=== PATIENT | female | born 1955 | race Caucasian/White ===

== ENCOUNTER → 2016-04-10 | Outpatient (CLI) | payer BC ==
[~2016-04-10] MED LIST: E-Z-GAS II EFFERVESCENT PACKET (SODIUM BICARB./CITRIC ACID/SIMETHICONE) As Ordered ONE; E-Z-HD 98% w/w 340GM SUSP BTL As Ordered ONE; E-Z-PAQUE 96% w/w SUSP 176GM BTL As Ordered ONE
--- NOTE | 2016-04-10 16:34 | REP ---
DOUBLE CONTRAST UPPER GI SERIES WITH SMALL-BOWEL FOLLOW-THROUGH AND KUB: 04/10/2016: Comparison: 07/24/2010 upper GI, CT abdomen 09/30/2014. Clinical history. Upper abdominal pain radiating around the abdomen. Heartburn. Findings: Guidance Director film shows mild levorotatory curve centered at L1. There are degenerative changes in the spine. Gas pattern is nonspecific with stool from cecum to rectosigmoid inclusive but not abnormally distending the bowel. No dilated small bowel loops or abnormal calcifications. No visible mass. AP and lateral cine-esophagram images show normal oral pharyngeal transfer and elevation of the cricopharyngeus muscle. There is a posterior impression on the cervical esophagus from anterior osteophyte lower cervical spine but no persistent stricture or mucosal abnormality. No laryngeal penetration or aspiration. In the thoracic esophagus. There was only minimal dysmotility without persistent mucosal abnormality, ulceration, mass or extrinsic mass effect. No hiatal hernia. I do not see distal esophageal stricture. There is one small episode of reflux into the lower esophageal segment. The stomach shows normal distensibility and rugal fold thickness. I do not see ulcer crater, mass, polyp or other persistent filling defect. No barium collection or aphthous ulceration nor any deep ulcerations evident radiographically. I see no extrinsic mass effect, duodenum shows normal distensibility and fold thickness. There is no ulceration duodenitis mass or extrinsic mass effect. Impression: 1. No duodenitis, gastritis, duodenal or gastric ulcer, mass or extrinsic mass effect. 2. No hiatal hernia, but one episode of a small amount of reflux lower esophageal segment. 3. Mild esophageal dysmotility without stricture, persistent mucosal abnormality, ulceration, or mass. SMALL-BOWEL FOLLOW-THROUGH: A further barium meal was administered with overhead images at 35, 65, 90 and 215 minutes. Transit time to the cecum just over 3 hours. There is a normal feathery mucosal pattern of the jejunum without full-thickness abnormality, loop separation, angulated or strictured loops. A more featureless mucosal pattern of the ileum is seen which is a normal finding. Terminal ileum was seen on ballottement and normal peristalsis is seen through it. There was no tenderness on this terminal ileum. I do not see strictured loops, loop separation or angulated loops anywhere in the small bowel loops. The patient placed the balloon palpation device over the area of her greatest discomfort which is in the left upper quadrant and is superimposed over some proximal jejunal loops and left colon, but no discrete abnormality is seen in this area. Impression: 1. Small bowel follow-through without persistent mucosal lesion, stricture or mass. There is no dilated loop, ulceration, nodule or any other abnormal finding on ballottement or overhead images. Transit time to the cecum just over 3 hours, in the normal range. Fluoroscopy time 2 minutes 10 seconds. Signed by David Dougherty MD 04/10/2016 04:51 P
== END ==
LOC: M RAD 08:41
PROVIDERS: ATTEND Surgery
DX: R10.9 Unspecified abdominal pain (principal)

== ENCOUNTER → 2016-08-07 | Outpatient (CLI) | payer BC ==
--- NOTE | 2016-08-07 23:05 | REP ---
Clinical: Cough. Technique: PA and lateral. Comparison: 01/29/2015. Findings: Chronic interstitial changes suggesting COPD. No acute consolidation, effusion, or pneumothorax. Mediastinum and cardiac silhouette normal. Skeletal structures demonstrate age-related osteopenia and degenerative change. Impression: Chronic interstitial changes suggesting COPD. Signed by Yakov Zhou MD 08/07/2016 10:56 P
== END ==
LOC: M ADAMS 13:34
PROVIDERS: ATTEND Family Medicine
DX: R91.8 Other nonspecific abnormal finding of lung field (principal)

== ENCOUNTER → 2017-02-12 | Outpatient (CLI) | payer BC ==
--- NOTE | 2017-02-14 09:29 | DEXA ---
AP SPINE L1 - L4 1.187 -0.1 1.3 LT FEMUR TOTAL 0.788 -1.7 -0.7 RT FEMUR TOTAL 0.821 -1.5 -0.5 TOTAL BODY TOTAL OTHER COMMENTS: Normal bone densitometry of the spine. There is low bone density of the left hip. There is low bone density of the right hip. There is degenerative change in the spine which may artificially elevate the BMD. The increased density of the spine does not represent a significant change since 02/08/2015. The decreased density of the left hip does represent a significant change since 02/08/2015. The decreased density of the right hip does represent a significant change since 02/08/2015. The density of the spine is decreased 5.4% since the initial exam on 05/09/2005. The spine density has increased 0.3% since the most recent exam on 02/08/2015. The density of the left hip has decreased 9.7% since the initial exam on 2005. The density of the left hip has decreased 2.6% since the most recent exam on 04/2014. The density of the right hip has decreased 11.1% since the initial exam on 05/09. The density of the right hip has decreased 4.4% since the most recent exam on . FOLLOW-UP: Recommendation for the next bone density exam: 2 years. MEGHANA
== END ==
LOC: M WHC 12:57
PROVIDERS: ATTEND Nurse Practitioner Women's Health
DX: M85.89 Other specified disorders of bone density and structure, multiple sites (principal); Z78.0 Asymptomatic menopausal state

== ENCOUNTER → 2017-03-19 | Outpatient (REF) | payer BC ==
[2017-03-19 20:50] LABS: BASO # 0.1 10^3/uL (0.0-0.2); BASO % 1.5 % (0.0-1.0); EOS # 0.1 10^3/uL (0.0-0.50); EOS % 2.3 % (0.0-3.0); HEMOGLOBIN 13.4 g/dl (12.0-16.0); IMMATURE GRANULOCYTE % 0.2 % (0-0); LYMPH % 32.9 % (24.0-44.0); MEAN CORPUSCULAR HEMOGLOBIN 32.7 pg (27.0-33.0); MEAN CORPUSCULAR HGB CONC 33.5 g/dl (32.0-36.5); MEAN CORPUSCULAR VOLUME 97.6 fl (80.0-96.0); MONO # 0.5 10^3/uL (0.0-0.8); MONO % 8.8 % (0.0-5.0); NEUTROPHILS # 3.4 10^3/uL (1.8-7.7); NEUTROPHILS % 54.3 % (36.0-66.0); PLATELET COUNT, AUTOMATED 245 10^3/uL (150-450); RED CELL DISTRIBUTION WIDTH 13.2 % (11.5-14.5); WHITE BLOOD COUNT 6.2 10^3/uL (4.0-10.0)
[2017-03-19 21:17] LABS: TOTAL 25(OH) VITAMIN D 29.8 NG/ML (30.0-100.0)
[2017-03-19 21:18] LABS: FOLATE 10.8 NG/ML
[2017-03-19 21:21] LABS: ALBUMIN 4.1 GM/DL (3.2-5.2); ALBUMIN/GLOBULIN RATIO 1.41 (1.00-1.93); ALKALINE PHOSPHATASE 77 U/L (45-117); ALT/SGPT 20 U/L (12-78); ANION GAP 7 MEQ/L (8-16); AST/SGOT 21 U/L (7-37); BILIRUBIN,TOTAL 0.3 MG/DL (0.2-1.0); BLOOD UREA NITROGEN 12 MG/DL (7-18); CALCIUM LEVEL 8.8 MG/DL (8.8-10.2); CARBON DIOXIDE LEVEL 28 MEQ/L (21-32); CHLORIDE LEVEL 104 MEQ/L (98-107); CREATININE FOR GFR 0.88 MG/DL (0.55-1.02); GLOMERULAR FILTRATION RATE > 60.0 (>45); GLUCOSE, FASTING 87 MG/DL (80-110); MAGNESIUM LEVEL 2.3 MG/DL (1.8-2.4); POTASSIUM SERUM 3.9 MEQ/L (3.5-5.1); RHEUMATOID FACTOR QUANT < 10.0 IU/ML (0-15.0); SODIUM LEVEL 139 MEQ/L (136-145)
[2017-03-19 22:50] LABS: ERYTHROCYTE SEDIMENTATION RATE 11 mm/hr (0-30)
[2017-03-20 11:36] LABS: VITAMIN B12 LEVEL 960 PG/ML
[2017-03-22 00:09] LABS: ANA (HEP2) Negative (.); Lyme Disease IgG/IgM Antibodie <0.91 ISR (0.00-0.90); Lyme Disease IgM Ab Quantitati <0.80 index (0.00-0.79)
== END ==
LOC: M SFHCADAM 16:39
DX: M13.0 Polyarthritis, unspecified (principal); E55.9 Vitamin D deficiency, unspecified; E53.8 Deficiency of other specified B group vitamins; M79.1 Myalgia; K21.9 Gastro-esophageal reflux disease without esophagitis
CPT/HCPCS: 82746

== ENCOUNTER → 2017-04-23 | Outpatient (CLI) | payer BC | LOC: M RAD 14:50 | DX: J98.4 Other disorders of lung (principal); J43.1 Panlobular emphysema; Z87.891 Personal history of nicotine dependence | CPT/HCPCS: G0297 ==

== ENCOUNTER → 2017-07-11 | Outpatient (REF) | payer BC ==
[2017-07-11 14:13] LABS: C REACTIVE PROTEIN QUANTITATIV < 0.30 MG/DL (0.00-0.30)
[2017-07-11 14:13] LABS: CPK CREATINE PHOSPHOKINASE 109 U/L (26-192)
[2017-07-16 00:07] LABS: FREE KAPPA LIGHT CHAINS SERUM 21.2 mg/L (3.3-19.4); FREE KAPPA LIGHT CHAINS URINE 1.89 mg/L (1.35-24.19); FREE LAMBDA LIGHT CHAINS SERUM 15.9 mg/L (5.7-26.3); FREE LAMBDA LIGHT CHAINS URINE 0.09 mg/L (0.24-6.66); IgG P18 AB Absent (.); IgG P23 AB Absent (.); IgG P28 AB Absent (.); IgG P30 AB Absent (.); IgG P39 AB Absent (.); IgG P41 AB Absent (.); IgG P45 AB Absent (.); IgG P58 AB Absent (.); IgG P66 AB Absent (.); IgG P93 AB Absent (.); IgM P23 AB Absent (.); IgM P39 AB Absent (.); IgM P41 AB Absent (.); KAPPA/LAMBDA RATIO SERUM 1.33 (0.26-1.65); LYME IgG WB INTERPRETATION Negative (.); LYME IgM WB INTERPRETATION Negative (.)
== END ==
LOC: M SFHCADAM 11:14
DX: M79.1 Myalgia (principal); M25.50 Pain in unspecified joint; D75.89 Other specified diseases of blood and blood-forming organs
CPT/HCPCS: 82550

== ENCOUNTER → 2018-05-13 | Outpatient (REF) | payer BC ==
[2018-05-13 20:25] LABS: HEMATOCRIT 40.9 % (36.0-47.0); HEMOGLOBIN 13.8 g/dl (12.0-15.5); MEAN CORPUSCULAR HEMOGLOBIN 32.5 pg (27.0-33.0); MEAN CORPUSCULAR HGB CONC 33.7 g/dl (32.0-36.5); MEAN CORPUSCULAR VOLUME 96.5 fl (80.0-96.0); PLATELET COUNT, AUTOMATED 243 10^3/uL (150-450); RED BLOOD COUNT 4.24 10^6/uL (4.00-5.40); WHITE BLOOD COUNT 5.2 10^3/uL (4.0-10.0)
[2018-05-13 20:51] LABS: ALT/SGPT 17 U/L (12-78); BILIRUBIN,TOTAL 0.5 MG/DL (0.2-1.0); BLOOD UREA NITROGEN 11 MG/DL (7-18); CALCIUM LEVEL 8.7 MG/DL (8.8-10.2); CARBON DIOXIDE LEVEL 26 MEQ/L (21-32); CHLORIDE LEVEL 105 MEQ/L (98-107); CREATININE FOR GFR 0.93 MG/DL (0.55-1.30); FOLATE 14.2 NG/ML; GLOMERULAR FILTRATION RATE > 60.0 (>45); GLUCOSE, FASTING 73 MG/DL (70-100); POTASSIUM SERUM 3.9 MEQ/L (3.5-5.1); SODIUM LEVEL 139 MEQ/L (136-145); TOTAL 25(OH) VITAMIN D 32.8 NG/ML (30.0-100.0); TOTAL PROTEIN 6.9 GM/DL (6.4-8.2); VITAMIN B12 LEVEL 513 PG/ML
== END ==
LOC: M SFHCADAM 16:15
PROVIDERS: ATTEND Physician Assistant
DX: E55.9 Vitamin D deficiency, unspecified (principal); E53.8 Deficiency of other specified B group vitamins; R51 Headache; R20.2 Paresthesia of skin; Z72.0 Tobacco use

== ENCOUNTER → 2018-06-16 | Outpatient (CLI) | payer BC ==
--- NOTE | 2018-06-16 16:37 | REPMRS ---
Patient History The patient states she had a clinical breast exam in 06/2018. Patient is postmenopausal and is nulliparous. No known family history of cancer. Benign excisional biopsy of the left breast. No Hormone Replacement Therapy Digital Woman Screen Mammo: June 16, 2018 - Exam #: [id number] Bilateral CC and MLO view(s) were taken. Technologist: Anne-Marie Luciano, Technologist Prior study comparison: January 10, 2017, digital woman screen mammo performed at [facility]. January 05, 2016, digital woman screen mammo performed at [facility]. January 04, 2015, digital woman screen mammo performed at [facility]. FINDINGS: The breast tissue is extremely dense which could obscure a lesion on mammography. There is an extremely dense symmetrical pattern of residual fibroglandular tissue. There has been no change in the appearance of the mammogram from the previous studies. There is no interval development of dominant mass, archetectural distortion, or microcalcific cluster suggestive of malignancy. 3-D tomosynthesis shows no additional findings. Assessment: BI-RADS/ACR category 1 mammogram. Negative Mammogram. Recommendation Routine screening mammogram of both breasts in 1 year (for women over age 40). This patient's Lifetime Breast Cancer RIsk is estimated at 8.1 %. This mammogram was interpreted with the aid of an FDA-approved computer-aided dectection system. Electronically Signed By: Bimal Catherine MD 06/16/18 0804
== END ==
LOC: M WHC 14:14
PROVIDERS: ATTEND Nurse Practitioner Women's Health
DX: Z12.31 Encounter for screening mammogram for malignant neoplasm of breast (principal); Z78.0 Asymptomatic menopausal state

== ENCOUNTER → 2019-04-01 | Outpatient (CLI) | payer BC ==
--- NOTE | 2019-04-02 17:18 | REP ---
Upper GI Air Contrast with SBFT The procedure was performed by SARTHAK Lopez, under the the direct supervision of Dr. Lee. The images were reviewed with Dr. Lee. The slipman film shows no organomegaly or pathological masses. The intestinal gas pattern appears normal. Liquid barium and gas producing crystals were given in the erect position as well as liquid barium in the prone position in order to perform a double contrast upper GI examination. The oral and pharyngeal stages of deglutition were unremarkable. Esophageal transport is efficient and there is no esophagitis, stricture, or mucosal ring noted. There is no hiatal hernia. Gastroesophageal reflux was visualized to the level of the caitlyn. The stomach caruso are normally outlined. The rugal folds are smooth and regular. There is no gastritis, neoplasm, or ulcer disease noted. The duodenal caruso are normally outlined. The mucosal folds are smooth and regular. There is no duodenitis, peptic ulcer disease, or neoplasm noted. The visualized portion of the proximal small bowel appears normal in course and caliber. The barium column was followed through the small bowel to the level of the terminal ileum. Small bowel transit time was approximately 160 minutes. During fluoroscopy gentle palpation shows all loops are freely mobile and pliable. There are no fixed or angulated loops. The small bowel mucosal pattern is normal in course and caliber. There is no transition to set suggest a partial small-bowel obstruction. Spot filming of the terminal ileum shows it to be unremarkable. Impression: 1. Gastroesophageal reflux to the level of the caitlyn. 1.1 minutes of fluoroscopy time was utilized for this procedure. Some fluoroscopic images are performed with last image hold technology. These images require no additional radiation. Reviewed by SARTHAK Black 04/02/2019 04:42 P Electronically Signed by Oliverio Lee MD 04/02/2019 05:09 P
== END ==
LOC: M RAD 10:03
PROVIDERS: ATTEND Surgery
DX: K21.9 Gastro-esophageal reflux disease without esophagitis (principal); R11.2 Nausea with vomiting, unspecified

== ENCOUNTER → 2019-06-25 | Outpatient (CLI) | payer BC ==
--- NOTE | 2019-06-25 17:29 | REP ---
LOW DOSE LUNG SCREENING CT: Low dose lung screening CT is performed without IV contrast. COMPARISON: Compared to prior studies of 05/29/2018 and 04/23/2017. In the right upper lobe there is a new 3 mm nodular density on image 48. No other new nodule is seen bilaterally. Fibrotic scarring is seen in the lung bases bilaterally. There is no consolidation. There is no pleural effusion. The heart is normal in size. No mediastinal contour abnormality is seen. There are atherosclerotic calcifications of the thoracic aorta without aneurysm. IMPRESSION: Lung-RADS category 2 benign. There is a new 3 mm nodule in the right upper lobe on image 48. No other new nodule. According to Edgar Society criteria, followup exam is recommended in one year. Electronically Signed by Oliverio Spence MD 06/28/2019 10:49 A
== END ==
LOC: M RAD 13:14
PROVIDERS: ATTEND Physician Assistant
DX: F17.218 Nicotine dependence, cigarettes, with other nicotine-induced disorders (principal); Z12.2 Encounter for screening for malignant neoplasm of respiratory organs

== ENCOUNTER → 2020-01-26 | Outpatient (REF) | payer BC ==
[2020-01-26 12:25] LABS: HEMATOCRIT 43.5 % (36.0-47.0); HEMOGLOBIN 14.6 g/dl (12.0-15.5); MEAN CORPUSCULAR HEMOGLOBIN 33.4 pg (27.0-33.0); MEAN CORPUSCULAR HGB CONC 33.6 g/dl (32.0-36.5); MEAN CORPUSCULAR VOLUME 99.5 fl (80.0-96.0); PLATELET COUNT, AUTOMATED 231 10^3/uL (150-450); RED BLOOD COUNT 4.37 10^6/uL (4.00-5.40); WHITE BLOOD COUNT 5.6 10^3/uL (4.0-10.0)
[2020-01-26 13:15] LABS: ALBUMIN 3.9 GM/DL (3.2-5.2); ALT/SGPT 14 U/L (12-78); BILIRUBIN,TOTAL 0.6 MG/DL (0.2-1.0); BLOOD UREA NITROGEN 12 MG/DL (7-18); CALCIUM LEVEL 9.3 MG/DL (8.8-10.2); CARBON DIOXIDE LEVEL 28 MEQ/L (21-32); CHLORIDE LEVEL 108 MEQ/L (98-107); CHOLESTEROL LEVEL 197 MG/DL (<200); CHOLESTEROL RISK RATIO 2.626 (<5); CREATININE FOR GFR 0.83 MG/DL (0.55-1.30); FOLATE 11.6 NG/ML; FREE T4 1.13 NG/DL (0.76-1.46); GLOMERULAR FILTRATION RATE > 60.0 (>45); GLUCOSE, FASTING 80 MG/DL (70-100); HDL CHOLESTEROL 75 MG/DL (>40); LDL CHOLESTEROL 105 MG/DL (<100); NON-HDL-C 122 MG/DL; POTASSIUM SERUM 4.4 MEQ/L (3.5-5.1); SODIUM LEVEL 141 MEQ/L (136-145); TOTAL 25(OH) VITAMIN D 23.2 NG/ML (30.0-100.0); TOTAL PROTEIN 6.8 GM/DL (6.4-8.2); TRIGLYCERIDES LEVEL 85 MG/DL (<150); VITAMIN B12 LEVEL 269 PG/ML
[2020-01-26 13:25] LABS: CREATININE, URINE 74.9 MG/DL; MALB URINE SIEMENS < 5.0 MG/L; MAU/CREAT RATIO 6.6 MCG/MG (0.0-30.0)
== END ==
LOC: M SFHCADAM 09:16
PROVIDERS: ATTEND Physician Assistant
DX: Z13.220 Encounter for screening for lipoid disorders (principal); E55.9 Vitamin D deficiency, unspecified; K21.9 Gastro-esophageal reflux disease without esophagitis; M85.80 Other specified disorders of bone density and structure, unspecified site; R10.12 Left upper quadrant pain; R63.4 Abnormal weight loss; I51.7 Cardiomegaly

== ENCOUNTER → 2020-02-23 | Outpatient (CLI) | payer MEDICARE, BC ==
--- NOTE | 2020-02-24 16:21 | ECHO ---
DATE OF PROCEDURE: 02/23/2020 Age: 64 Gender: Female Height: 67 inches Weight: 141 pounds Body surface area: 1.74 m2 PATIENT LOCATION: Outpatient. REFERRING PHYSICIAN: NISHANT Coronado INDICATION: Left ventricular hypertrophy/hypertension. MEASUREMENTS: 2D Measurements: RV 3.3 cm LV 4.0 cm Septum 0.9 cm Posterior wall 0.9 cm Aortic Root 2.8 cm LA 3.2 cm LVEF 65% Doppler Measurements: AV 1.3 m/s LVOT 0.74 m/s MV-E 78, A 66, E/A ratio 1.2 Early mitral deceleration time 222 msec E prime medial 6.3, A prime medial 9.4, E prime lateral 7.0 Average E/E prime ratio 11.7/PCWP 16.4 mmHg PV 0.85 m/s Pulmonary artery acceleration time 165 msec RVSP 25 mmHg IVC 1.7 cm COMMENTS: Normal sinus rhythm without intraventricular conduction disturbance. M-mode and two-dimensional echocardiography was performed with pulse, continuous wave, color flow, and tissue Doppler studies. Normal left ventricular size, wall thickness, and wall motion. Normal left atrial size and Doppler assessment of LV diastolic function and estimated mean left atrial pressure. Normal right heart chamber sizes and motion and estimated pulmonary arterial pressure. Normal IVC size and collapse against an elevated central venous pressure. Normal aortic dimensions. Mild aortic valvular sclerosis without stenosis and only very mild insufficiency. , Mild mitral annular thickening, but normal leaflet thickness and excursion without inflow tract obstruction and only trace mitral insufficiency. Normal appearing tricuspid valve with very mild insufficiency. No apparent intracardiac mass or pericardial effusion. MTDD
== END ==
LOC: M CARPUL 10:24
PROVIDERS: ATTEND Physician Assistant
DX: I51.7 Cardiomegaly (principal)

== ENCOUNTER → 2020-02-24 | Outpatient (CLI) | payer MEDICARE, BC ==
[~2020-02-24] MED LIST changes: +ALBU8.5H INH; -E-Z-GAS II EFFERVESCENT PACKET (SODIUM BICARB./CITRIC ACID/SIMETHICONE) As Ordered ONE; -E-Z-HD 98% w/w 340GM SUSP BTL As Ordered ONE; -E-Z-PAQUE 96% w/w SUSP 176GM BTL As Ordered ONE; +PANT40TA29 PO; +SPIR1AER INH; +VITA50005 PO
--- NOTE | 2020-02-24 15:20 | REPMRS ---
Patient History The patient states she had a clinical breast exam in February 2020. No known family history of cancer. Benign excisional biopsy of the left breast. No Hormone Replacement Therapy Digital Woman Screen Mammo: February 24, 2020 - Exam #: [id number] Bilateral CC and MLO view(s) were taken. Technologist: RT Teresa Prior study comparison: June 16, 2018, bilateral digital woman screen mammo performed at [facility]. January 10, 2017, digital woman screen mammo performed at [facility]. January 05, 2016, digital woman screen mammo performed at [facility]. FINDINGS: The breast tissue is extremely dense which could obscure a lesion on mammography. The Volpara volumetric breast density category is: D. There is an extremely dense symmetrical pattern of residual fibroglandular tissue. There has been no change in the appearance of the mammogram from the previous studies. There is no interval development of dominant mass, archetectural distortion, or grouped microcalcifications suggestive of malignancy. 3-D tomosynthesis shows no additional findings. Assessment: BI-RADS/ACR category 1 mammogram. Negative Mammogram. Recommendation Routine screening mammogram of both breasts in 1 year (for women over age 40). This patient's [facility] Lifetime Breast Cancer RIsk is estimated at 7.8 %. This mammogram was interpreted with the aid of an FDA-approved computer-aided dectection system. Electronically Signed By: Bimal Catherine MD 02/24/20 [id number]
--- NOTE | 2020-02-24 15:33 | DEXAMM ---
INDICATION: M85.80 OSTEOPENIA. COMPARISON: The most recent comparison study is from February 12, 2017. The most remote prior exam is from May 09, 2005.. TECHNIQUE: Bone density was measured using dual-energy x-ray absorptionmetry (DEXA). FINDINGS: AP SPINE L1-L4 BMD 1.216 g/cm2 Young Adult T-Score 0.2 Age Matched Z-Score 1.8. LT FEMUR, TOTAL BMD 0.770 g/cm2 Young Adult T-Score -1.9 Age Matched Z-Score -0.7. LT NECK BMD 0.671 g/cm2 Young Adult T-Score -2.6 Age Matched Z-Score -1.2. RT FEMUR, TOTAL BMD 0.839 g/cm2 Young Adult T-Score -1.3 Age Matched Z-Score -0.2. RT NECK BMD 0.739 g/cm2 Young Adult T-Score -2.1 Age Matched Z-Score -0.7. IMPRESSION: There is normal bone density of the spine. There is osteoporosis of the left hip. There is low bone density of the right hip. The density of the spine has decreased 1.4% since the initial exam on May 09 2005. The density of the spine increased 3.9% since most recent exam on February 12, 2017. The density of the left hip has decreased 11.8% since initial exam on May 09, 2005. The density of the left hip has decreased 2.3% since most recent exam on February 12, 2017. The density of the right hip has decreased 9.1% since the initial exam on May 09, 2005. The density of the right hip has increased 2.2% since the most recent exam on February 12, 2017. FOLLOW-UP: Recommendation for the next bone density exam: 2 years. <Electronically signed by Bimal Catherine > 02/24/20 [id number]
== END ==
LOC: M WHC 13:45
PROVIDERS: ATTEND Nurse Practitioner Women's Health
DX: Z01.419 Encounter for gynecological examination (general) (routine) without abnormal findings (principal); Z12.31 Encounter for screening mammogram for malignant neoplasm of breast; M85.80 Other specified disorders of bone density and structure, unspecified site; Z78.0 Asymptomatic menopausal state; Z86.018 Personal history of other benign neoplasm; M16.11 Unilateral primary osteoarthritis, right hip
CPT/HCPCS: 77063; 77067; 77080; 87624; G0101; G0123

== ENCOUNTER → 2020-02-24 | Outpatient (REF) | payer MEDICARE, BC | LOC: M SFHCWAGY 17:27 | PROVIDERS: ATTEND Nurse Practitioner Women's Health | DX: Z12.4 Encounter for screening for malignant neoplasm of cervix (principal) | CPT/HCPCS: 87624; G0101; G0123 ==

== ENCOUNTER → 2020-03-18 | Outpatient (CLI) | payer BC | LOC: M LABSMTC 09:55 | PROVIDERS: ATTEND Anesthesiology | DX: Z01.812 Encounter for preprocedural laboratory examination (principal); Z20.822 Contact with and (suspected) exposure to COVID-19 ==

== ENCOUNTER 2020-03-23 09:12 | Day surgery (SDC) | payer MEDICARE, BC ==
[~2020-03-23] VITALS: Ht 165.1 cm; Wt 62.6 kg
[~2020-03-23 09:12] MED LIST changes: +NS 1,000 ML IV ONE
--- OUTSIDE RECORDS SUMMARY | 2020-03-23 09:22 | CCD ---
Author Author [facility] Organization [facility] Address Unknown Phone Unavailable Care Team Providers Care Loan Review Analyst Name Role Phone Anna Langston Unavailable PROBLEMS Type Condition ICD9-CM Code [id number] Code Onset Dates Condition S tatus SNOMED Code Notes Problem Tobacco use disorder Z72.0 Active 41673372 Problem Hiatal hernia K44.9 Active 20781970 Problem Vitamin D deficiency E55.9 Active 96785320 Problem Osteopenia M85.80 Active 048542656 Problem Tinea corporis B35.4 Active 36934261 Problem Vitamin B12 deficiency E53.8 Active 410627894 Problem Tingling of face R20.2 Active 26907739 Problem GERD (gastroesophageal reflux disease) K21.9 A ctive 461133866 Problem LVH (left ventricular hypertrophy) I51.7 Activ e 25629422 Problem Osteoporosis M81.0 Active 80869103 Problem Tobacco use disorder F17.200 Active 732995243 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 Active 60583936 Problem Macrocytosis D75.89 Active 166436137 Problem Macrocytosis without anemia D75.89 Active 2343 44736 ALLERGIES Allergen (clinical drug ingredient) Drug/Non Drug Allergy do cumented on EMR Reaction Allergy Type Onset Date Status Penicillin (For Allergies Use Only) Hives Drug Allerg y Active ENCOUNTERS from 1955 to 2020-02-10 Encounter Location Date Provider Diagnosis [facility] [address] [place] [address] Feb, Sahil Langston IMMUNIZATIONS Vaccine Route Administration Date Status Pneumococcal Adult 0.5mL (Pneumovax 23) IM Intramuscular Nov Administered Influenza (6mo & up) Fluzone Unknown Jan 10, 2017 Oth ers Influenza (6mo & up) Fluzone Unknown Jan 04, 2016 Ref used Influenza (6mo & up) Fluzone IM Intramuscular Dec 01, 2013 Ad ministered Influenza (6mo & up) Fluzone IM Intramuscular Jan 23, 2011 Ad ministered SOCIAL HISTORY Tobacco Use: Social History Observation Description Date Details (start date - stop date) Current Smoker Sex Assigned At : Social History Observation Description Sex Assigned At Unknown Education: Question Answer Notes Level of Education: College Language: Question Answer Notes Languages spoken: Liberian Denominational: Question Answer Notes Denominational 21 Denominational Sexual Hx: Question Answer Notes Had sex in the last 12 months (vaginal, oral, or anal)? Yes LMP: age 48 Have you ever had an STD? No with Men only Use protection? No Alcohol Screening: Question Answer Notes Did you have a drink containing alcohol in the past year? Ye s Points 2 Interpretation Negative How often did you have six or more drinks on one occas ion in the past year? Never (0 points) How many drinks did you have on a typica l day when you were drinking in the past year? 1 or 2 (0 points) How often did you have a drink containing alcohol in t he past year? Two to four times a month (2 points) Tobacco Use: Question Answer Notes Are you a: current smoker Patient counseled on the dangers of tobacco use and urged to quit: 06/16/2018 How many cigarettes a day do you smoke? 11-20 Are you interested in quitting? Thinking about quitting pt h as chantix & will start in the future just not now Counseled the patient on smoking cessation, education provid ed 06/16/2018 REASON FOR REFERRAL No Information VITAL SIGNS No information MEDICATIONS Medication SIG (Take, Route, Frequency, Duration) Notes Start Da te End Date Status Chantix starter luis manuel 1 tab Oral for 14 days Not-Taking Valsartan 80 MG 1 tablet Orally Once a day for 30 day(s) 1 8 Jan, 2020 Active Vitamin B-12 1000 MCG 1 tablet Orally Once a day Not-Taking Omeprazole 40 MG 1 capsule Orally Daily Active Cortisporin-TC 3.3-3-10-0.5 MG/ML 5 drops into affecte d ear Otic Three times a day as needed for itching for 10 day(s) Jan, Active Drisdol 46348 UNIT 1 capsule Orally weekly for 30 day(s) 0 8 Aug, 2015 Not-Taking PROCEDURES No Information RESULTS No Results REASON FOR VISIT B12 low MEDICAL (GENERAL) HISTORY Type Description Date Medical History GERD Medical History Osteopenia DEXA 2012, Osteo porosis per DEXA 02/2015 - FRAX score 19.7/3.1% - unable to take oral bisphosphonates due to severe GERD/HH Medical History Abdominal pain, left upper q uadrant - chronic - followed by Dr. Cornelius (?splenic flexure syndrome) Medical History Hiatal hernia Medical History Vitamin D Deficiency - not t aking vitamin D due to GI complaints Medical History Tobacco Abuse Medical History Pooled Cohort Risk Score = 4.7% 02/2016 Medical History COPD/Emphysema - Follows [facility] Medical History 3mm nodule on lung cancer sc reening CT 07/2019 - F/U recommended in 1 year (managed by Pulmonary) Medical History GERD per UGI with SBFT 03/2019 Surgical History tonsillectomy Surgical History breast biopsy/LEFT 07/13 Surgical History colonoscopy 2005 & 09/25/2010 Surgical History endoscopy 2005 Surgical History EGD - HH 09/25/2010 Hospitalization History No know Hospitalization history Goals Section No Information Health Concerns No Information MEDICAL EQUIPMENT No Information MENTAL STATUS No Information FUNCTIONAL STATUS No Information ASSESSMENTS No Information PLAN OF TREATMENT Medication Medication Name Sig Start Date Stop Date Valsartan 80 MG 1 tablet Orally Once a day for 30 day(s) Jan, Cortisporin-TC 3.3-3-10-0.5 MG/ML 5 drops into affecte d ear Otic Three times a day as needed for itching for 10 day(s) Jan, Next Appt Details Provider Name:Yara Osorio, 2020-02-24 01:40:00 PM, [address] [place], [address], Provider Name:Anna Langston, 2020-02 04:15:00 PM, [address], [address], Insurance Providers Payer Name Payer Address Payer Phone Insured Name Patient Relati onship to Insured Coverage Start Date Coverage End Date BCBS MATT GUO PPO [phone] [facility] [address] [facility] [id number] MATILDA RIVERO self
--- OUTSIDE RECORDS SUMMARY | 2020-03-23 09:22 | CCD ---
Author Author [facility] Organization [facility] Address Unknown Phone Unavailable Care Team Providers Care Luggage Maker Name Role Phone Anna Langston Unavailable PROBLEMS Type Condition ICD9-CM Code [id number] Code Onset Dates Condition S tatus SNOMED Code Notes Problem Tobacco use disorder Z72.0 Active 40439147 Problem Hiatal hernia K44.9 Active 05769276 Problem Vitamin D deficiency E55.9 Active 59885018 Problem Osteopenia M85.80 Active 730411042 Problem Tinea corporis B35.4 Active 25325740 Problem Vitamin B12 deficiency E53.8 Active 705593969 Problem Tingling of face R20.2 Active 47156973 Problem GERD (gastroesophageal reflux disease) K21.9 A ctive 927238408 Problem LVH (left ventricular hypertrophy) I51.7 Activ e 05200194 Problem Osteoporosis M81.0 Active 65204894 Problem Tobacco use disorder F17.200 Active 833861128 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 Active 24802940 Problem Macrocytosis D75.89 Active 209696559 Problem Macrocytosis without anemia D75.89 Active 2343 42153 ALLERGIES Allergen (clinical drug ingredient) Drug/Non Drug Allergy do cumented on EMR Reaction Allergy Type Onset Date Status Penicillin (For Allergies Use Only) Hives Drug Allerg y Active ENCOUNTERS from 1955 to 2020-03-11 Encounter Location Date Provider Diagnosis [facility] [address] [place] [address] Feb, Reg kay Langston Vitamin D deficiency E55.9 ; LVH (left ventricular hypertrophy) I51.7 ; Vitamin B12 deficiency E53.8 and Tobacco use disorder F17.200 IMMUNIZATIONS Vaccine Route Administration Date Status Pneumococcal [...] College Language: Question Answer Notes Languages spoken: Egyptian Synagogue: Question Answer Notes Synagogue 21 [employer] Sexual Hx: Question Answer Notes Had sex [...] Notes Start Da te End Date Status Drisdol 44750 UNIT 1 capsule Orally weekly for 30 day(s) 0 8 Aug, 2015 Active Vitamin B-12 1000 MCG 1 tablet Orally Once a day Active Cortisporin-TC 3.3-3-10-0.5 MG/ML 5 drops into affecte d ear Otic Three times a day as needed for itching for 10 day(s) 18 Jan, 2020 Active Chantix starter luis manuel 1 tab Oral for 14 days Not-Taking Valsartan 80 MG 1 tablet Orally Once a day for 30 day(s) 1 8 Jan, 2020 Not-Taking Omeprazole 40 MG 1 capsule Orally Daily Active PROCEDURES No Information RESULTS No Results REASON FOR VISIT 4 week CALL CELL PHONE MEDICAL (GENERAL) HISTORY Type Description Date Medical [...] EGD - HH 09/25/2010 Hospitalization History No Hospitalization history informati on Goals Section No Information Health Concerns No Information MEDICAL EQUIPMENT No Information MENTAL STATUS No Information FUNCTIONAL STATUS No Information ASSESSMENTS Encounter Date Diagnosis Assessment Notes Treatment Notes Treatm ent Clinical Notes Feb, Vitamin D deficiency (ICD-10 - E55.9) Her Echo is pending - if she has LVH on the Echo, we will start lower dose of Valsartan and monitor BP and and tolerance. Feb, LVH (left ventricular hypertrophy) (ICD-10 - I51 .7) Feb, Vitamin B12 deficiency (ICD-10 - E53.8) Feb, Tobacco use disorder (ICD-10 - F17.200) PLAN OF TREATMENT Treatment Notes Assessment Notes Clinical Notes Vitamin D deficiency Her Echo is pending - if she has LVH on the Echo, we will start lower dose of Valsartan and monitor BP and and tolerance. Next Appt Details 1 Year Reason: Insurance Providers Payer Name Payer Address Payer Phone Insured Name Patient Relati onship to Insured Coverage Start Date Coverage End Date MEDICARE Part A and B [address] [facility] [id number] [phone] MATILDA RIVERO self BCBS MATT GUO PPO [phone] [place] [address] MATILDA RIVERO self
--- OUTSIDE RECORDS SUMMARY | 2020-03-23 09:22 | CCD ---
Author Author [facility] Organization [facility] Address Unknown Phone Unavailable Care Team Providers Care Transit Police Officer Name Role Phone Yara Osorio Unavailable PROBLEMS Type Condition ICD9-CM Code [id number] Code Onset Dates Condition S tatus SNOMED Code Notes Problem Tobacco use disorder Z72.0 Active 95499364 Problem Hiatal hernia K44.9 Active 94628136 Problem Vitamin D deficiency E55.9 Active 04549075 Problem Osteopenia M85.80 Active 127638741 Problem Tinea corporis B35.4 Active 74660802 Problem Vitamin B12 deficiency E53.8 Active 579890938 Problem Tingling of face R20.2 Active 81504623 Problem GERD (gastroesophageal reflux disease) K21.9 A ctive 766232996 Problem LVH (left ventricular hypertrophy) I51.7 Activ e 54026466 Problem Osteoporosis M81.0 Active 59586186 Problem Tobacco use disorder F17.200 Active 095659185 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 Active 47707620 Problem Macrocytosis D75.89 Active 432958667 Problem Macrocytosis without anemia D75.89 Active 2343 56500 ALLERGIES Allergen (clinical drug ingredient) Drug/Non Drug Allergy do cumented on EMR Reaction Allergy Type Onset Date Status Penicillin (For Allergies Use Only) Hives Drug Allerg y Active ENCOUNTERS from 1955 to 2020-02-26 Encounter Location Date Provider Diagnosis [facility] [address] [place] [id number] Feb, Yara Osorio Routine gynecologica l examination Z01.419 ; Osteopenia M85.80 and Screening for malignant neoplasm of cervix Z12.4 IMMUNIZATIONS Vaccine Route Administration Date Status Pneumococcal [...] College Language: Question Answer Notes Languages spoken: Luxembourgish Denominational: Question Answer Notes Denominational 21 Mormonism Sexual Hx: Question Answer Notes Had sex [...] REASON FOR REFERRAL No Information VITAL SIGNS Weight 141 lbs Feb, Weight-kg 63.96 kg Feb, Height 65.5 in Feb, BMI 23.1 kg/m2 Feb, Blood pressure systolic 108 mm Hg Feb, Blood pressure diastolic 66 mm Hg Feb, MEDICATIONS Medication SIG (Take, Route, Frequency, Duration) Notes Start Da te End Date Status Drisdol 10633 UNIT 1 capsule Orally weekly for 30 day(s) 0 8 Aug, 2015 Active Vitamin B-12 1000 MCG 1 tablet Orally Once a day Active Cortisporin-TC 3.3-3-10-0.5 MG/ML 5 drops into affecte d ear Otic Three times a day as needed for itching for 10 day(s) Jan, Active Chantix starter luis manuel 1 tab Oral for 14 days Not-Taking Valsartan 80 MG 1 tablet Orally Once a day for 30 day(s) 1 8 Jan, 2020 Not-Taking Omeprazole 40 MG 1 capsule Orally Daily Active PROCEDURES No Information RESULTS Component Value Reference Range DEXA Hip and Spine Reviewed date:02/25/2020 16:49:19 Interpretation: Performing Lab[facility], ,[email or web address] [id number] [facility] Wade Screening Bilateral (Ultrasoun d if Indicated) (3D Mammo) Reviewed date:02/25/2020 11:34:54 Interpretation: Performing Lab:[facility], ,[email or web address] [id number] REASON FOR VISIT ANNUAL/MAMMO/BMD MEDICAL (GENERAL) HISTORY Type Description Date Medical [...] Treatment Notes Treatm ent Clinical Notes Feb, Routine gynecological examination (ICD-10 - Z01. 419) Feb, Osteopenia (ICD-10 - M85.80) Feb, Screening for malignant neoplasm of cervix (ICD- 10 - Z12.4) PLAN OF TREATMENT Treatment Notes Test Name Order Date PAP REQUEST FOR SERVICE 2020-02-26 Next Appt Details 1 Year Reason:mammo or sooner prn Follow Up:1 Yearmammo or sooner prn Insurance Providers Payer Name Payer Address Payer Phone Insured Name Patient Relati onship to Insured Coverage Start Date Coverage End Date BCBS [place] PPO [phone] [place] [address] MATILDA RIVERO self MEDICARE Part A and [address] [place] [phone] MATILDA RIVERO self
--- OUTSIDE RECORDS SUMMARY | 2020-03-23 09:23 | CCD | Continuity of Care Document ---
Author Author Tran ABEL MD Organization Unknown Address [address] [facility] [address] [place] [address] Phone [phone] Care Team Providers Care Stave Cutter Name Role Phone Anna Langston P.A.-C. AUTM [phone] Problems Active Problems Provider Date Other nonspecific abnormal finding of lung field NISHANT French Onset: 01/24/2020 Gastrointestinal tract finding NISHANT Toro Onset: Nicotine dependence, cigarettes, with other nicotine-i nduced disorders NISHANT Toro Onset: 12/09/2017 Cough NISHANT Toro Onset: 06/09/2017 Ex-smoker NISHANT Toro Onset: 03/27/2017 Panacinar emphysema NISHANT Toro Onset: 03/27/2017 Social History Type Date Description Comments Sex Unknown ETOH Use 3 A Month Tobacco Use Start: [birth year]10/72 Patient is a current smoker, smo kes every day 1 ppd x 45 years now 15 cigs a day Smoking Status Reviewed: 01/24/20 Patient is a current smoker, smokes every day 1 ppd x 45 years now 15 cigs a day Allergies, Adverse Reactions, Alerts Active Allergies Reaction Severity Comments Date Penicillin Hives 03/28/2016 Medications Active Medications SIG Qnty Indications Ordering Provide r Date Ventolin HFA 108(90Base) mcg/Act A erosol 2 puffs qid/prn 18gm J43.1 Brett Woods D.OHugo 12/09/2018 Spiriva Respimat 1.25mcg/Act Aeros ol 2 puffs daily 4gm J43.1 Brett Woods D.O. 12/09/[address] 1 by mouth 2 x every day prn Unknown Immunizations Description No Information Available Vital Signs Date Vital Result Comment 02/09/2020 3:09pm BP Systolic 122 mmHg BP Diastolic 58 mmHg Height 66 inches 5'6" Weight 140.12 lb BMI (Body Mass Index) 22.6 kg/m2 [place] Body Weight 130 lb Weight 63.561 kg BSA (Body Surface Area) 1.72 m2 01/24/2020 1:27pm BP Systolic 142 mmHg BP Diastolic 68 mmHg Heart Rate 76 /min O2 % BldC Oximetry 98 % Height 66 inches 5'6" Weight 139.00 lb BMI (Body Mass Index) 22.4 kg/m2 [place] Body Weight 130 lb Weight 63.050 kg BSA (Body Surface Area) 1.71 m2 Results Test Acquired Date Facility Test Result H/L Range Note [facility] 01/24/2020 [facility] SEE IMAGE FVC-Pred 3.44 L FVC-Pre 3.16 L FVC-%Pred-Pre 91 L FVC-LLN 2.70 L Fev1-Pred 2.64 L Fev1-Pre 2.26 L Fev1-%Pred-Pre 85 L Fev1-LLN 2.01 L Fev6-Pred 3.31 L Fev6-Pre 3.13 L Fev6-%Pred-Pre 94 L Fev6-LLN 2.59 L Dek6zuf-Tiuo 77 % Iyi4rra-Dbx 72 % Iwt7lgo-%Pred-Pre 92 % Zqs6nsg-BNW 67 % Kfz8swo-Wkwx 96 % Ahj5lpy-Epe 99 % Zlo8gke-%Pred-Pre 102 % FEFMax-Pred 6.37 L/E/sec FEFMax-Pre 4.45 L/E/sec FEFMax-%Pred-Pre 69 L/E/sec FEFMax-LLN 4.55 L/E/sec Uge7186-Znut 2.29 L/E/sec Wyd4359-Cow 1.51 L/E/sec Pmj5149-%Pred-Pre 66 L/E/sec Yvo6542-QZD 0.97 L/E/sec ExpTime-Pre 6.56 sec Poq7rao6-Seox 80 % Zdr1aya0-Ovk 72 % Xip9yes8-%Pred-Pre 90 % Ocr0xjx9-ILO 71 % Procedures Date Code Description Status 01/24/2020 20707 Spirometry Completed Medical Devices Description No Information Available Encounters Type Date Location Provider Dx Diagnosis Office Visit 01/24/2020 2:30p [facility] Pulmonary/Thoracic NISHANT Toro J43.1 Panlobular emphysema R91.8 Other nonspecific abnormal f inding of lung field F17.218 Nicotine dependence, cigaret brittny, w oth disorders Assessments Date Code Description Provider 01/24/2020 J43.1 Panlobular emphysema NISHANT French 01/24/2020 R91.8 Other nonspecific abnormal findi ng of lung field NISHANT Toro 01/24/2020 F17.218 Nicotine dependence, cigarettes, with other nicotine-induced NISHANT Toro Plan of Treatment Future Appointment(s):* 07/27/2020 3:00 pm - NISHANT Toro at [facility] Pulmonary/Thoracic 01/24/2020 - NISHANT Toro* J43.1 Panlobular emphysema * R91.8 Other nonspecific abnormal finding of lung field * F17.218 Nicotine dependence, cigarettes, with other nicotine-induced * * New Labs:* [facility]/[place], Scheduled: 07/27/20 * Follow up:* Follow up in July [address] that was previously ordered for July 2020. [facility] at Follow up. Functional Status Description No Information Available Mental Status Description No Information Available Referrals Description No Information Available
--- OUTSIDE RECORDS SUMMARY | 2020-03-23 09:23 | CCD ---
Author Author [facility] Organization [facility] Address Unknown Phone Unavailable Care Team Providers Care Psych Therapist Name Role Phone Anna Langston Unavailable PROBLEMS Type Condition ICD9-CM Code QDD27-QZ Code Onset Dates Condition S tatus SNOMED Code Notes Problem Tobacco use disorder Z72.0 Active 88647607 Problem Hiatal hernia K44.9 Active 65290058 Problem Vitamin D deficiency E55.9 Active 71175077 Problem Osteopenia M85.80 Active 731057983 Problem Tinea corporis B35.4 Active 69034145 Problem Vitamin B12 deficiency E53.8 Active 911354162 Problem Tingling of face R20.2 Active 16480619 Problem GERD (gastroesophageal reflux disease) K21.9 A ctive 932253126 Problem LVH (left ventricular hypertrophy) I51.7 Activ e 24467938 Problem Osteoporosis M81.0 Active 72051101 Problem Tobacco use disorder F17.200 Active 901172025 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 Active 00594270 Problem Macrocytosis D75.89 Active 489510341 Problem Macrocytosis without anemia D75.89 Active 2343 09257 ALLERGIES Allergen (clinical drug ingredient) Drug/Non Drug Allergy do cumented on EMR Reaction Allergy Type Onset Date Status Penicillin (For Allergies Use Only) Hives Drug Allerg y Active ENCOUNTERS from 1955 to 2020-02-10 Encounter Location Date Provider Diagnosis [facility] [address] [place] [address] Jan, Reg kay Langston Unexplained weight loss R63.4 ; LVH (left ventricular hypertrophy) I51.7 ; Vitamin D deficiency E55.9 ; GERD (gastroesophageal reflux disease) K21.9 ; Osteopenia M85.80 ; Left upper quadrant abdominal pain R10.12 ; Elevated blood pressure reading without diagnosis of hypertension R03.0 ; Tobacco use disorder Z72.0 ; Lipid screening Z13.220 and Itching of ear L29.9 IMMUNIZATIONS Vaccine Route Administration Date Status Pneumococcal [...] College Language: Question Answer Notes Languages spoken: Romansh Rastafari: Question Answer Notes Rastafari 21 Anabaptist Sexual Hx: Question Answer Notes Had sex [...] FOR REFERRAL No Information VITAL SIGNS Weight 138 lbs Jan, Height 65.5 in Jan, BMI 22.61 kg/m2 Jan, Heart Rate 86 /min Jan, Respiratory Rate 18 /min Jan, Temperature 97.1 degrees Fahrenheit Jan, Oximetry 99 Jan, Blood pressure systolic 120 mm Hg Jan, Blood pressure diastolic 72 mm Hg Jan, MEDICATIONS Medication SIG (Take, Route, Frequency, Duration) [...] itching for 10 day(s) Jan, Active Drisdol 34230 UNIT 1 capsule Orally weekly for 30 day(s) 0 8 Aug, 2015 Not-Taking PROCEDURES Procedure Date Ordered Result Body Site ELECTROCARDIOGRAM, COMPLETE EKG 2020-01-26 N/A RESULTS REASON FOR VISIT overdue annual MEDICAL (GENERAL) HISTORY Type Description Date Medical [...] Notes Treatment Notes Treatm ent Clinical Notes Jan, Unexplained weight loss (ICD-10 - R63.4) Jan, LVH (left ventricular hypertrophy) (ICD-10 - I51 .7) EKG: SB 57 bpm, probable LVH, Anterior Q waves possibly due to LVH Jan, Vitamin D deficiency (ICD-10 - E55.9) Jan, GERD (gastroesophageal reflux disease) (ICD-10 - K21.9) Jan, Osteopenia (ICD-10 - M85.80) Bone Density ordered for 02/2020Jan, Left upper quadrant abdominal pain (ICD-10 - R10 .12) Jan, Elevated blood pressure read ing without diagnosis of hypertension (ICD-10 - R03.0) Jan, Tobacco use disorder (ICD-10 - Z72.0) Jan, Lipid screening (ICD-10 - Z13.220) Jan, Itching of ear (ICD-10 - L29.9) PLAN OF TREATMENT Medication Medication Name Sig Start Date Stop Date Valsartan 80 MG 1 tablet Orally Once a day for 30 day(s) Jan, Cortisporin-TC 3.3-3-10-0.5 MG/ML 5 drops into affecte d ear Otic Three times a day as needed for itching for 10 day(s) Jan, Treatment Notes Assessment Notes Clinical Notes LVH (left ventricular hypertrophy) EKG: SB 57 bpm, probable LVH, Anterior Q waves possibly due to LVH Osteopenia Bone Density ordered for 02/2020 Treatment Notes Test Name Order Date Echocardiogram 2020-02-10 Next Appt Details labs today, 4 Weeks Reason: Provider Name:Yara Osorio, 2020-02-24 01:40:00 PM, [address] [place], [address], Provider Name:Anna Langston, 2020-02 04:15:00 PM, [address], [address], Insurance Providers Payer Name Payer Address Payer Phone Insured Name Patient Relati onship to Insured Coverage Start Date Coverage End Date BCBS [place] PPO [phone] [facility] [place] [facility] [address] MATILDA RIVERO self
--- OUTSIDE RECORDS SUMMARY | 2020-03-23 09:24 | CCD ---
Author Author [facility] Organization [facility] Address Unknown Phone Unavailable Care Team Providers Care Aircraft Detail Draftsperson Name Role Phone GRAVES, M SAMM PA Unavailable Unavailable GRAVES, M SAMM PA Unavailable Unavailable GRAVES, M SAMM PA Unavailable Unavailable GRAVES, M SAMM PA Unavailable Unavailable GRAVES, M SAMM PA Unavailable Unavailable GRAVES, M SAMM PA Unavailable Unavailable GRAVES, M SAMM PA Unavailable Unavailable GRAVES, M SAMM PA Unavailable Unavailable GRAVES, M SAMM PA Unavailable Unavailable GRAVES, M SAMM PA Unavailable Unavailable GRAVES, M SAMM PA Unavailable Unavailable GRAVES, M SAMM PA Unavailable Unavailable GRAVES, M SAMM PA Unavailable Unavailable GRAVES, M SAMM PA Unavailable Unavailable GRAVES, M SAMM PA Unavailable Unavailable GRAVES, M SAMM PA Unavailable Unavailable GRAVES, M SAMM PA Unavailable Unavailable GRAVES, M SAMM PA Unavailable Unavailable GRAVES, M SAMM PA Unavailable Unavailable GRAVES, M SAMM PA Unavailable Unavailable GRAVES, M SAMM PA Unavailable Unavailable GRAVES, M SAMM PA Unavailable Unavailable GRAVES, M SAMM PA Unavailable Unavailable GRAVES, M SAMM PA Unavailable Unavailable GRAVES, M SAMM PA Unavailable Unavailable GRAVES, M SAMM PA Unavailable Unavailable GRAVES, M SAMM PA Unavailable Unavailable GRAVES, M SAMM PA Unavailable Unavailable GRAVES, M SAMM PA Unavailable Unavailable GRAVES, M SAMM PA Unavailable Unavailable GRAVES, M SAMM PA Unavailable Unavailable GRAVESPaul Unavailable Unavailable GRAVESPaul Unavailable Unavailable Re-disclosure Warning The records that you are about to access may contain information from federally-assisted alcohol or drug abuse programs. If such information is present, then the following federally mandated warning applies: This information has been disclosed to you from records protected by federal confidentiality rules (42 CFR part 2). The federal rules prohibit you from making any further disclosure of this information unless further disclosure is expressly permitted by the written consent of the person to whom it pertains or as otherwise permitted by 42 CFR part 2. A general authorization for the release of medical or other information is NOT sufficient for this purpose. The Federal rules restrict any use of the information to criminally investigate or prosecute any alcohol or drug abuse patient.The records that you are about to access may contain highly sensitive health information, the redisclosure of which is protected by Article 27-F of the [facility] Public Health law. If you continue you may have access to information: Regarding HIV / AIDS; Provided by facilities licensed or operated by the [facility] Office of Mental Health; or Provided by the [facility] Office for People With Developmental Disabilities. If such information is present, then the following [facility] mandated warning applies: This information has been disclosed to you from confidential records which are protected by state law. State law prohibits you from making any further disclosure of this information without the specific written consent of the person to whom it pertains, or as otherwise permitted by law. Any unauthorized further disclosure in violation of state law may result in a fine or custodial sentence or both. A general authorization for the release of medical or other information is NOT sufficient authorization for further disc losure. Family History Family Member Name Family Member Gender Family Member Status Date o f Status Description Data Source(s) Unknown Male Problem [facility] Unknown Female Encounters Encounter Providers Location Date Indications Data Source(s ) TeleMedicine Phone E/M by Phys 21-30 Min [address] [place] [address] 02/24/2020 12:00:00 AM EST eCW1 ([facility]) ( GYNANN) [facility] Yearly [employer] Exam [address] [place] [address] 02/24/2020 12:00:00 AM EST eCW1 ([facility]) Unknown [address] [facility] [address] 02/09/2020 12:00:00 AM EST eCW1 ([facility]) Outpatient [address] [facility] [address] 01/26/2020 12:00:00 AM EST eCW1 ([facility]) Outpatient Attender: SAMM Li/Yunier/Greyson/Kenisha dl 01/24/2020 01:30:00 PM EST MEDENT ([facility]) Outpatient 07/06/2019 05:53:00 AM EDT [facility] [place] [address] [facility] [address] 04/27/2019 12:00:00 AM EST eCW1 ([facility]) Outpatient 04/05/2019 12:37:00 PM EST [facility] Immunizations Vaccine Date Status Description Data Source(s) INFLUENZA VIRUS VACCINE QUADRIVALENT 2019- (6 MOS AN D UP) 01/22/2020 12:00:00 AM EST completed [facility] Medications Medication Brand Name Start Date Product Form Dose Route Admi nistrative Instructions Pharmacy Instructions Status Indications Reaction Description Data Source(s) 17.5-3.13-1.6 gram 03/14/2020 12:00:00 AM EST recon soln 354 DIRECTED PER BOWEL PREP INSTRUCTIONS DIRECTED PER BOWEL PREP INSTRUCTIONS SOLD: 03/18/19 21 [facility] 1,250 mcg (50,000 unit) 02/25/2020 12:00:00 AM EST capsule 4 TAKE 1 CAPSULE BY MOUTH WEEKLY TAKE 1 CAPSULE BY MOUTH WEEKLY SOLD: 02/27/2020 [facility] 3.3-3-10-0.5 mg/mL 01/27/2020 12:00:00 AM EST drops,suspensi on 10 INSTILL 5 DROPS INTO AFFECTED EAR THREE TIMES A DAY NEEDED FOR ITCHING INSTILL 5 DROPS INTO AFFECTED EAR THREE TIMES A DAY NEEDED FOR ITCHING SOLD: 02/02/2020 [facility] Colistin 3 MG/ML / Hydrocortisone 10 MG/ ML / Neomycin 3.3 MG/ML / THONZONIUM BROMIDE 0.5 MG/ML Otic Suspension [Cortisporin-TC] Cortisporin-TC 3.3-3-10-0.5 MG/ML Cortisporin-TC 3.3-3-10-0.5 MG/ML 01/26/2020 12:00:00 AM EST 5.0 {drops_into_affected_ear} active Cortis porin-TC 3.3-3-10-0.5 MG/ML eCW1 (On [facility]) valsartan 80 MG Oral Tablet Valsartan 80 MG Valsartan 80 MG 01/26/2020 12:00:00 AM EST 1.0 {tablet} active Valsartan 8 0 MG eCW1 (On License Of [facility]) Colistin 3 MG/ML / Hydrocortisone 10 MG/ ML / Neomycin 3.3 MG/ML / THONZONIUM BROMIDE 0.5 MG/ML Otic Suspension [Cortisporin-TC] Cortisporin-TC 3.3-3-10-0.5 MG/ML Cortisporin-TC 3.3-3-10-0.5 MG/ML 01/26/2020 12:00:00 AM EST 5.0 {drops_into_affected_ear} active Cortis porin-TC 3.3-3-10-0.5 MG/ML eCW1 (On License Of [facility]) Colistin 3 MG/ML / Hydrocortisone 10 MG/ ML / Neomycin 3.3 MG/ML / THONZONIUM BROMIDE 0.5 MG/ML Otic Suspension [Cortisporin-TC] Cortisporin-TC 3.3-3-10-0.5 MG/ML Cortisporin-TC 3.3-3-10-0.5 MG/ML 01/26/2020 12:00:00 AM EST 5.0 {drops_into_affected_ear} active Cortis porin-TC 3.3-3-10-0.5 MG/ML eCW1 (On License Of [facility]) Colistin 3 MG/ML / Hydrocortisone 10 MG/ ML / Neomycin 3.3 MG/ML / THONZONIUM BROMIDE 0.5 MG/ML Otic Suspension [Cortisporin-TC] Cortisporin-TC 3.3-3-10-0.5 MG/ML Cortisporin-TC 3.3-3-10-0.5 MG/ML 01/26/2020 12:00:00 AM EST 5.0 {drops_into_affected_ear} active Cortis porin-TC 3.3-3-10-0.5 MG/ML eCW1 (On [facility]) valsartan 80 MG Oral Tablet Valsartan 80 MG Valsartan 80 MG 01/26/2020 12:00:00 AM EST 1.0 {tablet} active Valsartan 8 0 MG eCW1 (On [facility]) valsartan 80 MG Oral Tablet Valsartan 80 MG Valsartan 80 MG 01/26/2020 12:00:00 AM EST 1.0 {tablet} suspended Valsarta n 80 MG eCW1 (On License Of [facility]) 80 mg 01/26/2020 12:00:00 AM EST tablet 30 TAKE ONE TABLET BY MOUTH EVERY DAY TAKE ONE TABLET BY MOUTH EVERY DAY SOLD: 01/27/2020 [facility] valsartan 80 MG Oral Tablet Valsartan 80 MG Valsartan 80 MG 01/26/2020 12:00:00 AM EST 1.0 {tablet} suspended Valsarta n 80 MG eCW1 (On License Of [facility]) 1.25 mcg/actuation 07/16/2019 12:00:00 AM EDT mist 4 INHALE TWO PUFFS BY MOUTH EVERY DAY INHALE TWO PUFFS BY MOUTH EVERY DAY SOLD: 07/18/2019 [facility] 90 mcg/actuation 07/16/2019 12:00:00 AM EDT HFA aerosol inha ler 18 INHALE TWO PUFFS BY MOUTH FOUR TIMES A DAY NEEDED INHALE TWO PUFFS BY MOUTH FOUR TIMES A DAY NEEDED SOLD: 07/18/2019 [facility] 40 mg 04/05/2019 12:00:00 AM EST tablet,delayed release (DR/EC) 90 TAKE ONE TABLET BY MOUTH EVERY DAY TAKE ONE TABLET BY MOUTH EVERY DAY SOLD: 04/10/2019 [facility] Insurance Providers Payer name Policy type / Coverage type Policy ID Covered democrat ID Covered democrat's relationship to smith Policy Smith Plan Information BCJOE GUO PPO 302/307 [id number] SP [id number] MEDICARE [id number] SP [id number] [place]/307 [id number] SP [id number] MEDICARE C [id number] S [id number] [place] BCBS B [id number] S YND [id number] [place] P[place] 302/307 [id number] SP [id number] [place] 302/307 [id number] SP [id number] ANSI-Commercial [id number] ANSI-Commercial [id number] ANSI-Commercial [id number] ANSI-Commercial [id number] EXCELLUS BCBS PI PI EXCELLUS BCBS [id number] Soila YND [id number] [employer] BCBS Health Maintenance Organization (HMO) [id number] Self [id number] [place] P[place] 302/307 [id number] SP [id number] [employer] BCBS B [id number] S [id number] SELF PAY UNAVAILABLE SP UNAVAILA BLE BS [employer] Medigap Part B Self BS [employer] Commercial Self BLUE CROSS BLUE SHIELD-O/P [id number] 18 [id number] [place] PPO 302/307 [id number] SP [id number] Problems, Conditions, and Diagnoses Code Display Name Description Problem Type Effective Dates Data Source(s) I51.7 [id number] LVH (left ventricular hypertrophy) Proble m 01/26/2020 12:00:00 AM EST eCW1 ([facility]) Other nonspecific abnormal finding of madhav ng field Other nonspecific abnormal finding of lung field Problem 01/24/2020 12:00:00 AM EST MEDENT ([facility], ) [id number] Gastrointestinal tract finding Gastrointestinal tract finding Problem 07/15/2019 12:00:00 AM EDT MEDENT ([facility], ) Surgeries/Procedures Procedure Description Date Indications Data Source(s) ECG ROUTINE ECG W/LEAST 12 LDS W/I&R 01/26/2020 12:00: 00 AM EST eCW1 (On [facility]) Spirometry 01/24/2020 12:00:00 AM EST M EDENT ([facility], ) Results ID Date Data Source [id number] 03/18/2020 10:30:00 AM EST [facility] Name Value Range Interpretation Code Description Data Lucero rce(s) Supporting Document(s) SARS coronavirus 2 RNA Not Detected [place] [place] This lab was ordered by [facility] and reported by [facility]. ID Date Data Source [id number] FOL 01/26/2020 12:00:00 AM EST eCW1 ([facility]) Name Value Range Interpretation Code Description Data Lucero rce(s) Supporting Document(s) 11.6 FOLATE eCW1 ([facility]) 269 VITAMIN B12 LEVEL eCW1 ([facility]) ID Date Data Source LIPID PANEL (CARDIAC RISK) 01/26/2020 12:00:00 AM EST eCW1 ( [facility]) Name Value Range Interpretation Code Description Data Lucero rce(s) Supporting Document(s) Cholesterol in HDL [Moles/volume] in Serum or Plasma 75 >40 eCW1 (On [facility]) Triglyceride [Mass/volume] in Serum or Plasma by calculation 85 <150 eCW1 (On [facility]) Cholesterol [Moles/volume] in Serum or Plasma 197 <200 eCW1 ([facility]) 2.626 <5 eCW1 ([facility]) 122 eCW1 ([facility]) Cholesterol in LDL [Mass/volume] in Serum or Plasma by calculation 10 5 <100 eCW1 ([facility]) ID Date Data Source [id number] 01/26/2020 12:00:00 AM EST eCW1 ([facility]) Name Value Range Interpretation Code Description Data Lucero rce(s) Supporting Document(s) Albumin/Creatinine [Mass Ratio] in Urine < 5.0 eCW1 ([facility]) Microalbumin/Creatinine [Mass Ratio] in Urine 74.9 eCW1 (On [facility]) Microalbumin/Creatinine [Ratio] in Urine 6.6 0.0-30.0 eCW1 (On [facility]) ID Date Data Source VITAMIN D 25-HYDROXY 01/26/2020 12:00:00 AM EST eCW1 ([facility]) Name Value Range Interpretation Code Description Data Lucero rce(s) Supporting Document(s) 23.2 30.0-100.0 TOTAL 25(OH) VITAMIN D eC W1 ([facility]) ID Date Data Source FREE T4 & TSH PANEL 01/26/2020 12:00:00 AM EST eCW1 ([facility]) Name Value Range Interpretation Code Description Data Lucero rce(s) Supporting Document(s) 3.800 0.358-3.740 THYROID STIMULATING HORM ONE eCW1 ([facility]) 1.13 0.76-1.46 FREE T4 eCW1 ([facility]) ID Date Data Source Comprehensive Metabolic Profile (CMP) 01/26/2020 12:00:00 AM EST eCW1 (On [facility]) Name Value Range Interpretation Code Description Data Lucero rce(s) Supporting Document(s) 80 70-100 GLUCOSE, FASTING eCW1 ([facility]) 12 7-18 BLOOD UREA NITROGEN eCW1 ([facility] hospital) 0.83 0.55-1.30 CREATININE FOR GFR eCW1 ([facility]) 4.4 3.5-5.1 POTASSIUM SERUM eCW1 ([facility]) 28 21-32 CARBON DIOXIDE LEVEL eCW1 ([facility]) 108 98-107 CHLORIDE LEVEL eCW1 ([facility]) 141 136-145 SODIUM LEVEL eCW1 ([facility]) > 60.0 >45 GLOMERULAR FILTRATION RATE eCW 1 (On [facility]) 85 45-117 ALKALINE PHOSPHATASE eCW1 ([facility]) 16 7-37 AST/SGOT eCW1 ([facility]) 14 12-78 ALT/SGPT eCW1 ([facility]) 9.3 8.8-10.2 CALCIUM LEVEL eCW1 (On [facility]) 1.3 1.2-2.2 ALBUMIN/GLOBULIN RATIO eCW1 ([facility]) 6.8 6.4-8.2 TOTAL PROTEIN eCW1 (On [facility]) 0.6 0.2-1.0 BILIRUBIN,TOTAL eCW1 ([facility]) 3.9 3.2-5.2 ALBUMIN eCW1 ([facility]) ID Date Data Source CBC - Complete Blood Count 01/26/2020 12:00:00 AM EST eCW1 ( [facility]) Name Value Range Interpretation Code Description Data Lucero rce(s) Supporting Document(s) 43.5 36.0-47.0 eCW1 ([facility]) 14.6 12.0-15.5 eCW1 ([facility]) 4.37 4.00-5.40 eCW1 ([facility]) 5.6 4.0-10.0 eCW1 ([facility]) 33.4 27.0-33.0 eCW1 ([facility]) 13.3 11.5-14.5 eCW1 ([facility]) 99.5 80.0-96.0 eCW1 ([facility]) 33.6 32.0-36.5 eCW1 ([facility]) 231 150-450 eCW1 ([facility]) ID Date Data Source [id number] 01/24/2020 01:27:00 PM EST MEDENT ([facility], ) Name Value Range Interpretation Code Description Data Lucero rce(s) Supporting Document(s) PDFReport Laboratory test result MEDENT ([facility], ) FVC-Pred 3.44 L MEDENT ([facility], ) FVC-Pre 3.16 L MEDENT ([facility], ) Fev1-Pre 2.26 L MEDENT ([facility], ) FVC-%Pred-Pre 91 L MEDENT ([facility], ) FVC-LLN 2.70 L MEDENT ([facility], ) Fev1-Pred 2.64 L MEDENT ([facility]) Fev1-%Pred-Pre 85 L MEDENT ([facility], ) Fev1-LLN 2.01 L MEDENT ([facility], ) Fev6-Pred 3.31 L MEDENT ([facility], ) Fev6-LLN 2.59 L MEDENT ([facility], ) Fev6-Pre 3.13 L MEDENT ([facility], ) Fev6-%Pred-Pre 94 L MEDENT ([facility], ) Ezt6ypf-NNS 67 % MEDENT ([facility], ) Tor9dgz-Kgj 72 % MEDENT ([facility]) Lmq7rsw-Fxij 77 % MEDENT ([facility]) Xtk1juh-%Pred-Pre 92 % MEDENT ([facility]) Scp4gyv-Pak 99 % MEDENT ([facility]) Rac6jvd-%Pred-Pre 102 % MEDENT ([facility]) Mdo9flb-Gyoz 96 % MEDENT ([facility]) FEFMax-Pred 6.37 L/E/sec MEDENT ([facility], ) FEFMax-Pre 4.45 L/E/sec MEDENT ([facility]) FEFMax-%Pred-Pre 69 L/E/sec MEDENT ([facility]) Zav6938-Vukv 2.29 L/E/sec MEDENT ([facility]) FEFMax-LLN 4.55 L/E/sec MEDENT ([facility]) Edb6357-Nml 1.51 L/E/sec MEDENT ([facility]) Xuh6wkn6-Vpzu 80 % MED[facility] ([facility]) Vww4002-%Pred-Pre 66 L/E/sec MEDENT ([facility]) ExpTime-Pre 6.56 sec MEDENT ([facility]) Lrr6267-IBT 0.97 L/E/sec MEDENT ([facility]) Fut2hsf6-EKP 71 % MEDENT ([facility]) Etd0vsw0-%Pred-Pre 90 % MEDENT ([facility]) Sbq0tlq8-Zwj 72 % MEDENT ([facility]) Procedure Social History Code Duration Value Status Description Data Source(s ) Smoking 02/24/2020 12:00:00 AM EST Current Smoker completed Curre nt Smoker [facility] ([facility]) Smoking 02/24/2020 12:00:00 AM EST Current Smoker completed Curre nt Smoker eC (On [facility]) Smoking 01/26/2020 12:00:00 AM EST Current Smoker completed Curre nt Smoker eCW1 (On [facility]) Smoking 01/26/2020 12:00:00 AM EST Current Smoker completed Curre nt Smoker eCW1 (On [facility]) Vital Signs ID Date Data Source UNK Name Value Range Interpretation Code Description Data Source(s) Diastolic blood pressure 66 mm[Hg] 66 mm[Hg] eCW1 ([facility]) Systolic blood pressure 108 mm[Hg] 108 mm[Hg] e CW1 (On [facility]) Body mass index (BMI) [Ratio] 23.1 kg/m2 23.1 k g/m2 [facility] (On License Of [facility]) Body height 65.5 [in_i] 65.5 [in_i] eCW1 ([facility]) Body weight 63.96 kg 63.96 kg eCW1 ([facility]) Body weight 141 [lb_av] 141 [lb_av] eCW1 ([facility]) Body surface area Derived from formula 1.72 m2 1.72 m2 [facility] ([facility]) Body weight 63.561 kg 63.561 kg [facility] ([facility]) [place] body weight 130 [lb_av] 130 [lb_av] MEDEN T ([facility]) Body mass index (BMI) [Ratio] 22.6 kg/m2 22.6 k g/m2 [facility] ([facility]) Body weight 140.12 [lb_av] 140.12 [lb_av] MEDEN T ([facility]) Body height 66 [in_i] 66 [in_i] [facility] ([facility]) 5'6" Diastolic blood pressure 58 mm[Hg] 58 mm[Hg] [facility] Systolic blood pressure 122 mm[Hg] 122 mm[Hg] M EDENT ([facility]) Diastolic blood pressure 72 mm[Hg] 72 mm[Hg] eCW1 ([facility]) Systolic blood pressure 120 mm[Hg] 120 mm[Hg] e CW1 ([facility]) Body temperature 97.1 [degF] 97.1 [degF] eCW1 ( [facility]) Respiratory rate 18 /min 18 /min eCW1 ([facility]) Heart rate 86 /min 86 /min eCW1 ([facility]) Body mass index (BMI) [Ratio] 22.61 kg/m2 22.61 kg/m2 eCW1 (On [facility] Of [facility]) Body height 65.5 [in_i] 65.5 [in_i] eCW1 ([facility]) Body weight 138 [lb_av] 138 [lb_av] eCW1 ([facility]) Body surface area Derived from formula 1.71 m2 1.71 m2 [facility] ([facility]) Body weight 63.050 kg 63.050 kg [facility] ([facility]) [place] body weight 130 [lb_av] 130 [lb_av] [facility] Body mass index (BMI) [Ratio] 22.4 kg/m2 22.4 k g/m2 [facility] ([facility]) Body weight 139.00 [lb_av] 139.00 [lb_av] [facility] Body height 66 [in_i] 66 [in_i] [facility] ([facility]) 5'6" Oxygen saturation in Arterial blood by Pulse oximetry 98 % 98 % [facility] ([facility]) Heart rate 76 /min 76 /min [facility] ([facility]) Diastolic blood pressure 68 mm[Hg] 68 mm[Hg] [facility] ([facility]) Systolic blood pressure 142 mm[Hg] 142 mm[Hg] [facility] Patient Treatment Plan of Care Planned Activity Planned Date Details Description Data Source (s) Colistin 3 MG/ML / Hydrocortisone 10 MG/ ML / Neomycin 3.3 MG/ML / THONZONIUM BROMIDE 0.5 MG/ML Otic Suspension [Cortisporin-TC] 01/26/2020 12:00:00 AM EST eCW1 (On [facility]) valsartan 80 MG Oral Tablet 01/26/2020 12:00:00 AM EST eCW1 (On [facility] Of [facility]) Colistin 3 MG/ML / Hydrocortisone 10 MG/ ML / Neomycin 3.3 MG/ML / THONZONIUM BROMIDE 0.5 MG/ML Otic Suspension [Cortisporin-TC] 01/26/2020 12:00:00 AM EST eCW1 (On [facility]) valsartan 80 MG Oral Tablet 01/26/2020 12:00:00 AM EST eCW1 ([facility])
[2020-03-23] MEDS ORDERED: fentaNYL 100 MCG/2 ML INJECTION (J3010) As Ordered ONE (10:26)
[2020-03-23] MEDS ORDERED: propofoL 500 MG/50 ML VIAL As Ordered ONE (10:26)
[2020-03-23] MEDS ORDERED: LIDOCAINE 2% 100MG/5ML SDV (FOR ANES.) As Ordered ONE (10:26)
--- NOTE | 2020-03-23 10:28 | ROOR ---
Patient Name: Tran Vuong Procedure Date: 03/23/2020 10:12 AM Date of : 1955 Age: 65 Room: [facility] Gender: Female Note Status: Finalized Procedure: Upper GI endoscopy Indications: Suspected esophageal reflux, Diarrhea Providers: Ed Cornelius Jr, MD Referring MD: NISHANT Coronado Requesting Provider: Medicines: Propofol per Anesthesia Complications: No immediate complications. Procedure: Pre-Anesthesia Assessment: - Prior to the procedure, a History and Physical was performed, and patient medications and allergies were reviewed. The patient is competent. The risks and benefits of the procedure and the sedation options and risks were discussed with the patient. All questions were answered and informed consent was obtained. Patient identification and proposed procedure were verified by the physician and the nurse in the pre-procedure area and in the procedure room. Mental Status Examination: alert and oriented. Airway Examination: normal oropharyngeal airway and neck mobility. Respiratory Examination: clear to auscultation. CV Examination: normal. ASA Grade Assessment: II - A patient with mild systemic disease. After reviewing the risks and benefits, the patient was deemed in satisfactory condition to undergo the procedure. The anesthesia plan was to use moderate sedation / analgesia (conscious sedation). Immediately prior to administration of medications, the patient was re-assessed for adequacy to receive sedatives. The heart rate, respiratory rate, oxygen saturations, blood pressure, adequacy of pulmonary ventilation, and response to care were monitored throughout the procedure. The physical status of the patient was re-assessed after the procedure. The Endoscope was introduced through the mouth, and advanced to the fourth part of duodenum. The upper GI endoscopy was accomplished without difficulty. The patient tolerated the procedure well. Findings: The upper third of the esophagus, middle third of the esophagus, lower third of the esophagus and gastroesophageal junction were normal. The cardia, gastric fundus, gastric body, gastric antrum, prepyloric region of the stomach and pylorus were normal. The duodenal bulb, first portion of the duodenum, second portion of the duodenum, third portion of the duodenum and fourth portion of the duodenum were normal. Biopsies were taken with a cold forceps for histology. Impression: - Normal upper third of esophagus, middle third of esophagus, lower third of esophagus and gastroesophageal junction. - Normal cardia, gastric fundus, gastric body, antrum, prepyloric region of the stomach and pylorus. - Normal duodenal bulb, first portion of the duodenum, second portion of the duodenum, third portion of the duodenum and fourth portion of the duodenum. Biopsied. Recommendation: - Discharge patient to home (ambulatory). - Return to my office at appointment to be scheduled. Procedure Code(s): --- Professional --- 45764, Esophagogastroduodenoscopy, flexible, transoral; with biopsy, single or multiple Diagnosis Code(s): --- Professional --- R19.7, Diarrhea, unspecified CPT copyright 2019 [employer]. All rights reserved. The codes documented in this report are preliminary and upon blanket binder review may be revised to meet current compliance requirements. Ed Cornelius MD Ed Cornelius Jr, MD 03/23/2020 10:27:46 AM Electronically signed by Ed Cornelius Jr, MD Number of Addenda: 0 Note Initiated On: 03/23/2020 10:12 AM Estimated Blood Loss: Estimated blood loss: none.
--- NOTE | 2020-03-23 10:43 | ROOR ---
Patient Name: Tran Vuong Procedure Date: 03/23/2020 10:14 AM Date of : 1955 Age: 65 Room: [facility] Gender: Female Note Status: Finalized Procedure: Colonoscopy Indications: Clinically significant diarrhea of unexplained origin Providers: Ed Cornelius Jr, MD Referring MD: NISHANT Coronado Requesting Provider: Medicines: Propofol per Anesthesia Complications: No immediate complications. Procedure: Pre-Anesthesia Assessment: - Prior to the procedure, a History and Physical was performed, and patient medications and allergies were reviewed. The patient is competent. The risks and benefits of the procedure and the sedation options and risks were discussed with the patient. All questions were answered and informed consent was obtained. Patient identification and proposed procedure were verified by the physician and the nurse in the pre-procedure area and in the procedure room. Mental Status Examination: alert and oriented. Airway Examination: normal oropharyngeal airway and neck mobility. Respiratory Examination: clear to auscultation. CV Examination: normal. ASA Grade Assessment: II - A patient with mild systemic disease. After reviewing the risks and benefits, the patient was deemed in satisfactory condition to undergo the procedure. The anesthesia plan was to use moderate sedation / analgesia (conscious sedation). Immediately prior to administration of medications, the patient was re-assessed for adequacy to receive sedatives. The heart rate, respiratory rate, oxygen saturations, blood pressure, adequacy of pulmonary ventilation, and response to care were monitored throughout the procedure. The physical status of the patient was re-assessed after the procedure. The Colonoscope was introduced through the anus and advanced to the cecum, identified by appendiceal orifice and ileocecal valve. The colonoscopy was performed without difficulty. The patient tolerated the procedure well. The quality of the bowel preparation was adequate. Findings: The sigmoid colon, descending colon, transverse colon, ascending colon, cecum, appendiceal orifice and ileocecal valve appeared normal. Biopsies for histology were taken with a cold forceps from the cecum, right colon, transverse colon and descending colon for evaluation of microscopic colitis. A scattered area of mild melanosis was found in the rectum and in the recto-sigmoid colon. Biopsies were taken with a cold forceps for histology. Impression: - The sigmoid colon, descending colon, transverse colon, ascending colon, cecum, appendiceal orifice and ileocecal valve are normal. Biopsied. - Melanosis in the colon. Biopsied. Recommendation: - Discharge patient to home (ambulatory). - Return to my office at appointment to be scheduled. Procedure Code(s): --- Professional --- 53562, Colonoscopy, flexible; with biopsy, single or multiple Diagnosis Code(s): --- Professional --- K63.89, Other specified diseases of intestine R19.7, Diarrhea, unspecified CPT copyright 2019 [employer]. All rights reserved. The codes documented in this report are preliminary and upon check cashier review may be revised to meet current compliance requirements. Ed Cornelius MD Ed Cornelius Jr, MD 03/23/2020 10:42:38 AM Electronically signed by Ed Cornelius Jr, MD Number of Addenda: 0 Note Initiated On: 03/23/2020 10:14 AM Estimated Blood Loss: Estimated blood loss: none.
[2020-03-23 11:15] VITALS: BP 131/63
== END 2020-03-23 11:32 | disposition home or self-care (01) ==
LOC: M OPP 09:12
PROVIDERS: ATTEND Surgery
DX: R19.7 Diarrhea, unspecified (principal); K21.9 Gastro-esophageal reflux disease without esophagitis; R10.9 Unspecified abdominal pain; K63.5 Polyp of colon; K63.89 Other specified diseases of intestine; D13.39 Benign neoplasm of other parts of small intestine; J44.9 Chronic obstructive pulmonary disease, unspecified; F17.210 Nicotine dependence, cigarettes, uncomplicated; Z88.0 Allergy status to penicillin; Z79.899 Other long term (current) drug therapy
CPT/HCPCS: 43239; 45380; 88305; J3010

== ENCOUNTER → 2020-07-17 | Outpatient (CLI) | payer MEDICARE ==
[~2020-07-17] MED LIST changes: -NS 1,000 ML IV ONE
--- NOTE | 2020-07-17 11:20 | REP ---
INDICATION: ABN FINDING OF LUNG. COMPARISON: 06/25/2019 as well as other prior exams. TECHNIQUE: CT chest performed without the use of intravenous contrast. Sagittal and coronal reconstruction images are performed. FINDINGS: Lungs: The 3 mm nodular density in the right upper lobe seen on the exam of 06/25/2019 is not seen on today's exam. This was likely inflammatory and has resolved. No pulmonary nodule is seen bilaterally and there is no evidence of infiltrate. Bibasilar fibrotic change is stable as well as mild to moderate diffuse emphysematous change. Mediastinum: No gross adenopathy. Darlene: No gross adenopathy. Axilla: No gross adenopathy. Pleura: No effusion. Heart: Not enlarged. Thoracic aorta: No aneurysm. Upper abdominal structures: Grossly unremarkable. Visualized osseous structures: There are degenerative changes of the spine without compression deformity. IMPRESSION: The 3 mm nodular density in the right upper lobe seen on the exam of 06/25/2019 is not seen on today's exam. This was likely inflammatory and has resolved. No pulmonary nodule is seen bilaterally. Recommend follow-up low-dose lung screening CT in 1 year if clinically indicated. <Electronically signed by Oliverio Spence > 07/17/20 [id number]
== END ==
LOC: M RAD 10:45
PROVIDERS: ATTEND Physician Assistant
DX: R91.8 Other nonspecific abnormal finding of lung field (principal)

== ENCOUNTER → 2021-07-26 | Outpatient (CLI) | payer MEDICARE ==
[~2021-07-26] MED LIST changes: +ERGO500029 PO; -VITA50005 PO
== END ==
LOC: M RAD 11:49
PROVIDERS: ATTEND Physician Assistant
DX: J43.9 Emphysema, unspecified (principal); F17.218 Nicotine dependence, cigarettes, with other nicotine-induced disorders

== ENCOUNTER → 2021-11-05 | Outpatient (REF) | payer MEDICARE, BC ==
[2021-11-06 12:56] LABS: HEMATOCRIT 38.2 % (36.0-47.0); MEAN CORPUSCULAR HEMOGLOBIN 33.3 pg (27.0-33.0); MEAN CORPUSCULAR VOLUME 97.9 fl (80.0-96.0); PLATELET COUNT, AUTOMATED 230 10^3/uL (150-450); WHITE BLOOD COUNT 6.4 10^3/uL (4.0-10.0)
[2021-11-06 14:35] LABS: ALBUMIN 3.4 GM/DL (3.2-5.2); ALT/SGPT 19 U/L (12-78); BILIRUBIN,TOTAL 0.6 MG/DL (0.2-1.0); BLOOD UREA NITROGEN 8 MG/DL (7-18); CALCIUM LEVEL 8.7 MG/DL (8.8-10.2); CARBON DIOXIDE LEVEL 25 MEQ/L (21-32); CHLORIDE LEVEL 107 MEQ/L (98-107); CHOLESTEROL LEVEL 178 MG/DL (<200); CHOLESTEROL RISK RATIO 2.617 (<5); CREATININE FOR GFR 0.84 MG/DL (0.55-1.30); GLOMERULAR FILTRATION RATE > 60.0 (>45); GLUCOSE, FASTING 71 MG/DL (70-100); HDL CHOLESTEROL 68 MG/DL (>40); LDL CHOLESTEROL 100 MG/DL (<100); NON-HDL-C 110 MG/DL; POTASSIUM SERUM 4.5 MEQ/L (3.5-5.1); SODIUM LEVEL 138 MEQ/L (136-145); TOTAL PROTEIN 6.4 GM/DL (6.4-8.2); TRIGLYCERIDES LEVEL 51 MG/DL (<150)
[2021-11-06 14:57] LABS: TOTAL 25(OH) VITAMIN D 49.8 NG/ML (30.0-100.0)
[2021-11-06 14:58] LABS: FOLATE 9.6 NG/ML; VITAMIN B12 LEVEL 269 PG/ML
== END ==
LOC: M SFHCADAM 14:10
PROVIDERS: ATTEND Physician Assistant
DX: E55.9 Vitamin D deficiency, unspecified (principal); K21.9 Gastro-esophageal reflux disease without esophagitis; E53.8 Deficiency of other specified B group vitamins; Z13.220 Encounter for screening for lipoid disorders; Z78.0 Asymptomatic menopausal state

== ENCOUNTER → 2022-02-12 | Outpatient (CLI) | payer MEDICARE, BC ==
[2022-02-12 15:13] LABS: FOLATE 12.44 NG/ML (>5.4)
== END ==
LOC: M WUC 10:40
PROVIDERS: ATTEND Physician Assistant
DX: E53.8 Deficiency of other specified B group vitamins (principal)

== ENCOUNTER → 2022-04-24 | Outpatient (CLI) | payer MEDICARE | LOC: M WHC 14:14 | PROVIDERS: ATTEND Advanced Practice Midwife | DX: Z12.31 Encounter for screening mammogram for malignant neoplasm of breast (principal); Z13.820 Encounter for screening for osteoporosis; M85.851 Other specified disorders of bone density and structure, right thigh; M81.0 Age-related osteoporosis without current pathological fracture ==

== ENCOUNTER → 2022-08-01 | Outpatient (CLI) | payer MEDICARE, BC ==
[2022-08-01 18:48] LABS: BASO # 0.1 10^3/uL (0.0-0.2); BASO % 1.7 % (0.0-1.0); EOS # 0.2 10^3/uL (0.0-0.5); EOS % 2.6 % (0.0-3.0); HEMATOCRIT 39.5 % (36.0-47.0); HEMOGLOBIN 12.9 g/dl (12.0-15.5); LYMPH # 2.2 10^3/uL (1.5-5.0); LYMPH % 38.1 % (24.0-44.0); MEAN CORPUSCULAR HEMOGLOBIN 32.1 pg (27.0-33.0); MEAN CORPUSCULAR HGB CONC 32.7 g/dl (32.0-36.5); MEAN CORPUSCULAR VOLUME 98.3 fl (80.0-96.0); MONO # 0.5 10^3/uL (0.0-0.8); NEUTROPHILS # 2.8 10^3/uL (1.5-8.5); NEUTROPHILS % 48.3 % (36.0-66.0); PLATELET COUNT, AUTOMATED 231 10^3/uL (150-450); RED BLOOD COUNT 4.02 10^6/uL (4.00-5.40); WHITE BLOOD COUNT 5.8 10^3/uL (4.0-10.0)
[2022-08-01 19:13] LABS: ALBUMIN 3.7 G/DL (3.2-5.2); ALKALINE PHOSPHATASE 81 U/L (46-116); ALT/SGPT 15 U/L (7.0-40); AST/SGOT 19 U/L (<34); BILIRUBIN,TOTAL 0.4 MG/DL (0.3-1.2); BLOOD UREA NITROGEN 9 MG/DL (9-23); CALCIUM LEVEL 8.4 MG/DL (8.3-10.6); CARBON DIOXIDE LEVEL 27 MMOL/L (20-31); CHLORIDE LEVEL 109 MMOL/L (98-107); CREATININE FOR GFR 0.97 MG/DL (0.55-1.30); GLOMERULAR FILTRATION RATE > 60.0 (>45); GLUCOSE, FASTING 59 MG/DL (74-106); MAGNESIUM LEVEL 1.8 MG/DL (1.8-2.4); POTASSIUM SERUM 4.6 MMOL/L (3.5-5.1); SODIUM LEVEL 141 MMOL/L (136-145)
[2022-08-01 19:16] LABS: THYROID STIMULATING HORMONE 4.447 uIU/ML (0.55-4.78)
[2022-08-01 19:17] LABS: FREE T4 1.04 NG/DL (0.89-1.76); TOTAL 25(OH) VITAMIN D 31.8 NG/ML (20.0-100.0); VITAMIN B12 LEVEL 301 PG/ML (211-911)
== END ==
LOC: M WUC 15:09
PROVIDERS: ATTEND Physician Assistant
DX: M81.0 Age-related osteoporosis without current pathological fracture (principal); E55.9 Vitamin D deficiency, unspecified; E53.8 Deficiency of other specified B group vitamins; G44.52 New daily persistent headache (NDPH); H53.40 Unspecified visual field defects; Z79.899 Other long term (current) drug therapy

== ENCOUNTER → 2022-09-04 | Outpatient (CLI) | payer MEDICARE ==
[~2022-09-04] MED LIST changes: +PROHANCE 279.3MG/ML 15ML VIAL ONE
== END ==
LOC: M PLAIMG 13:13
PROVIDERS: ATTEND Physician Assistant
DX: G44.52 New daily persistent headache (NDPH) (principal); H53.40 Unspecified visual field defects
CPT/HCPCS: 70553; A9576

== ENCOUNTER → 2022-09-04 | Outpatient (CLI) | payer MEDICARE ==
[~2022-09-04] MED LIST changes: -PROHANCE 279.3MG/ML 15ML VIAL ONE
== END ==
LOC: M RAD 09:39
PROVIDERS: ATTEND Physician Assistant
DX: Z12.2 Encounter for screening for malignant neoplasm of respiratory organs (principal); F17.218 Nicotine dependence, cigarettes, with other nicotine-induced disorders

== ENCOUNTER → 2023-04-25 | Outpatient (CLI) | payer MEDICARE | LOC: M WHC 10:22 | PROVIDERS: ATTEND Advanced Practice Midwife | DX: Z12.31 Encounter for screening mammogram for malignant neoplasm of breast (principal) ==

== ENCOUNTER → 2023-04-25 | Outpatient (CLI) | payer MEDICARE | LOC: M PLALAB 12:03 | PROVIDERS: ATTEND Advanced Practice Midwife | DX: Z01.419 Encounter for gynecological examination (general) (routine) without abnormal findings (principal); Z79.899 Other long term (current) drug therapy; E55.9 Vitamin D deficiency, unspecified ==

== ENCOUNTER → 2023-09-18 | Outpatient (CLI) | payer MEDICARE | LOC: M RAD 12:58 | PROVIDERS: ATTEND Physician Assistant | DX: Z12.2 Encounter for screening for malignant neoplasm of respiratory organs (principal); F17.218 Nicotine dependence, cigarettes, with other nicotine-induced disorders; J47.9 Bronchiectasis, uncomplicated; J98.11 Atelectasis; J43.2 Centrilobular emphysema ==

== ENCOUNTER → 2023-09-30 | Outpatient (CLI) | payer BC, MEDICARE ==
[2023-09-30 13:22] LABS: HEMATOCRIT 41.7 % (36.0-47.0); HEMOGLOBIN 14.1 g/dl (12.0-15.5); MEAN CORPUSCULAR HEMOGLOBIN 33.1 pg (27.0-33.0); MEAN CORPUSCULAR HGB CONC 33.8 g/dl (32.0-36.5); MEAN CORPUSCULAR VOLUME 97.9 fl (80.0-96.0); PLATELET COUNT, AUTOMATED 226 10^3/uL (150-450); RED BLOOD COUNT 4.26 10^6/uL (4.00-5.40); WHITE BLOOD COUNT 5.6 10^3/uL (4.0-10.0)
[2023-09-30 13:48] LABS: ALBUMIN 3.7 G/DL (3.2-5.2); ALKALINE PHOSPHATASE 75 U/L (46-116); ALT/SGPT 15 U/L (7.0-40); AST/SGOT 16 U/L (<34); BILIRUBIN,TOTAL 0.6 MG/DL (0.3-1.2); BLOOD UREA NITROGEN 11 MG/DL (9-23); CALCIUM LEVEL 9.3 MG/DL (8.3-10.6); CARBON DIOXIDE LEVEL 26 MMOL/L (20-31); CHLORIDE LEVEL 109 MMOL/L (98-107); CHOLESTEROL LEVEL 180 MG/DL (<200); CHOLESTEROL RISK RATIO 2.84 (<5); CREATININE FOR GFR 0.83 MG/DL (0.55-1.30); GLOMERULAR FILTRATION RATE > 60.0 (>45); GLUCOSE, FASTING 83 MG/DL (74-106); HDL CHOLESTEROL 63.3 MG/DL (>40); LDL CHOLESTEROL 105.7 MG/DL (<100); NON-HDL-C 116.7 MG/DL; POTASSIUM SERUM 4.2 MMOL/L (3.5-5.1); SODIUM LEVEL 141 MMOL/L (136-145); TOTAL PROTEIN 6.3 G/DL (5.7-8.2); TRIGLYCERIDES LEVEL 55 MG/DL (<150)
[2023-09-30 13:49] LABS: FOLATE 9.2 NG/ML (>5.4); THYROID STIMULATING HORMONE 3.636 uIU/ML (0.55-4.78)
[2023-09-30 13:50] LABS: TOTAL 25(OH) VITAMIN D 36.8 NG/ML (20.0-100.0); VITAMIN B12 LEVEL 328 PG/ML (211-911)
== END ==
LOC: M WHC 09:54
PROVIDERS: ATTEND Physician Assistant
DX: I25.10 Atherosclerotic heart disease of native coronary artery without angina pectoris (principal); F17.218 Nicotine dependence, cigarettes, with other nicotine-induced disorders; R09.89 Other specified symptoms and signs involving the circulatory and respiratory systems; J44.9 Chronic obstructive pulmonary disease, unspecified; E53.8 Deficiency of other specified B group vitamins; R20.0 Anesthesia of skin; M81.0 Age-related osteoporosis without current pathological fracture

== ENCOUNTER → 2023-10-27 | Outpatient (CLI) | payer BC, MEDICARE | LOC: M RAD 13:30 | PROVIDERS: ATTEND Physician Assistant | DX: I25.10 Atherosclerotic heart disease of native coronary artery without angina pectoris (principal); F17.218 Nicotine dependence, cigarettes, with other nicotine-induced disorders; R09.89 Other specified symptoms and signs involving the circulatory and respiratory systems ==

== ENCOUNTER → 2024-05-20 | Outpatient (CLI) | payer MEDICARE | LOC: M WHC 13:39 | PROVIDERS: ATTEND Advanced Practice Midwife | DX: Z12.31 Encounter for screening mammogram for malignant neoplasm of breast (principal); M81.0 Age-related osteoporosis without current pathological fracture ==

== ENCOUNTER → 2024-05-20 | Outpatient (CLI) | payer MEDICARE | LOC: M WHC 13:38 | PROVIDERS: ATTEND Advanced Practice Midwife | DX: Z12.31 Encounter for screening mammogram for malignant neoplasm of breast (principal); R92.343 Mammographic extreme density, bilateral breasts ==

== ENCOUNTER → 2024-10-15 | Outpatient (REF) | payer MEDICARE ==
[2024-10-15 18:10] LABS: ALT/SGPT 16.0 U/L (7.0-40); AST/SGOT 24.0 U/L (<34); CALCIUM LEVEL 8.9 MG/DL (8.3-10.6); CARBON DIOXIDE LEVEL 25.0 MMOL/L (20-31); CHLORIDE LEVEL 107.0 MMOL/L (98-107); CREATININE FOR GFR 0.86 MG/DL (0.55-1.30); GLOMERULAR FILTRATION RATE 73.1 (>45); POTASSIUM SERUM 4.1 MMOL/L (3.5-5.1); SODIUM LEVEL 141.0 MMOL/L (136-145)
== END ==
LOC: M SFHCWAGY 17:13 → M LABWUC 17:13
PROVIDERS: ATTEND Advanced Practice Midwife
DX: M81.0 Age-related osteoporosis without current pathological fracture (principal)

== ENCOUNTER → 2024-10-20 | Outpatient (REF) | payer MEDICARE ==
[2024-10-21 13:44] LABS: APPEARANCE, URINE CLEAR (CLEAR); BACTERIA, URINE AUTO 1+ (NEGATIVE); BILIRUBIN, URINE AUTO NEGATIVE (NEGATIVE); BLOOD, URINE BLOOD NEGATIVE (NEGATIVE); GLUCOSE, URINE (UA) AUTO NEGATIVE (NEGATIVE); KETONE, URINE AUTO NEGATIVE (NEGATIVE); LEUKOCYTE ESTERASE, URINE AUTO NEGATIVE (NEGATIVE); NITRITE, URINE AUTO NEGATIVE (NEGATIVE); PROTEIN, URINE AUTO NEGATIVE (NEGATIVE); RBC, URINE AUTO 0 /HPF (0-3); SPECIFIC GRAVITY URINE AUTO 1.003 (1.002-1.035); SQUAMOUS EPITHELIAL CELL UR AU 0 /HPF (0-6); UROBILINOGEN, URINE AUTO 0.2 mg/dL (0.0-2.0); WBC, URINE AUTO 0 /HPF (0-3)
== END ==
LOC: M SFHCADAM 12:46
PROVIDERS: ATTEND Physician Assistant
DX: R35.0 Frequency of micturition (principal)

== ENCOUNTER → 2024-10-28 | Outpatient (CLI) | payer MEDICARE | LOC: M RAD 16:46 | PROVIDERS: ATTEND Physician Assistant | DX: Z12.2 Encounter for screening for malignant neoplasm of respiratory organs (principal); F17.218 Nicotine dependence, cigarettes, with other nicotine-induced disorders ==

== ENCOUNTER → 2024-12-20 | Outpatient (CLI) | payer MEDICARE ==
[2024-12-20 17:12] LABS: ALT/SGPT 10.0 U/L (7.0-40); AST/SGOT 21.0 U/L (<34); CALCIUM LEVEL 8.9 MG/DL (8.3-10.6); CARBON DIOXIDE LEVEL 27.0 MMOL/L (20-31); CHLORIDE LEVEL 107.0 MMOL/L (98-107); CREATININE FOR GFR 0.87 MG/DL (0.55-1.30); GLOMERULAR FILTRATION RATE 72.1 (>45); POTASSIUM SERUM 4.1 MMOL/L (3.5-5.1); SODIUM LEVEL 142.0 MMOL/L (136-145)
[2024-12-20 17:14] LABS: INR 0.95
[2024-12-20 17:18] LABS: PLATELET COUNT, AUTOMATED 248 10^3/uL (150-450)
== END ==
LOC: M WUC 15:21
DX: Z01.818 Encounter for other preprocedural examination (principal)